=== PATIENT | female | born 1980 | race Caucasian/White ===

== ENCOUNTER → 2016-12-23 | Outpatient (CLI) | payer BC ==
[~2016-12-23] MED LIST: ALPR0.25 PO; HYDR2TAB13 PO
== END | disposition home or self-care (01) ==
LOC: CFH 08:38
PROVIDERS: ATTEND Nurse Practitioner Primary Care
DX: R05 Cough (principal); R53.83 Other fatigue; G89.29 Other chronic pain; R79.89 Other specified abnormal findings of blood chemistry; G43.909 Migraine, unspecified, not intractable, without status migrainosus; M25.551 Pain in right hip; M54.9 Dorsalgia, unspecified; R76.8 Other specified abnormal immunological findings in serum; R90.89 Other abnormal findings on diagnostic imaging of central nervous system; M25.571 Pain in right ankle and joints of right foot; M79.641 Pain in right hand
CPT/HCPCS: 71020